=== PATIENT | female | born 2000 | race Caucasian/White ===

== ENCOUNTER 2022-06-25 05:09 | Inpatient (IN) ==
[2022-06-25] MEDS ORDERED: OXYTOCIN/LR 20 UNIT/1,000 ML BAG IV ONE ×2 (05:18→12:41)
[2022-06-25] MEDS ORDERED: ACETAMINOPHEN 325 MG TABLET PO PRN ×2 (05:18→12:41)
[2022-06-25] MEDS ORDERED: BUTORPHANOL 2 MG/ML VIAL IV PRN (05:18)
[2022-06-25] MEDS ORDERED: ONDANSETRON 4 MG/2 ML VIAL IV PRN ×2 (05:18→12:41)
[2022-06-25] MEDS ORDERED: LACTATED RINGERS 500 ML IV PRN (05:18)
[2022-06-25] MEDS ORDERED: BUTORPHANOL 1 MG/ML VIAL IV PRN (05:18)
[2022-06-25] MEDS ORDERED: LACTATED RINGERS 250 ML IV ONE (05:18)
[2022-06-25] MEDS ORDERED: CARBOPROST TROMETHAMINE 250 MCG/ML AMP IM PRN (05:18)
[2022-06-25] MEDS ORDERED: METHYLERGONOVINE 0.2 MG/1 ML AMP IM PRN (05:18)
[2022-06-25] MEDS ORDERED: miSOPROStoL 200 MCG TABLET RECTAL PRN (05:18)
[2022-06-25] MEDS ORDERED: TRANEXAMIC ACID 1,000 MG in SODIUM CHLORIDE 0.9% 100 ML IV PRN (05:18)
[2022-06-25] MEDS ORDERED: LACTATED RINGERS 1,000 ML IV SCH (05:30)
[2022-06-25] MEDS ORDERED: OXYTOCIN/LR 20 UNIT/1,000 ML BAG IV SCH (06:00)
[2022-06-25 06:09] LABS: Basophils % 0.5 % (0.0-0.8); Eosinophils # 0.1 10*3/uL (0.0-0.87); Eosinophils % 0.6 % (0.00-10.9); Hemoglobin 9.4 GM/DL (12.0-16.0); Immature Granulocytes % 1.7 %; Immature Granulocytes Absolute 0.15 #; Lymphocytes # 2.3 10*3/uL (1.4-4.0); Lymphocytes % 26.8 % (21.3-54.2); Mean Corpuscular HGB Conc 31.3 GM/DL (32-36); Mean Corpuscular Volume 84.5 FL (87-102); Mean Platelet Volume 10.4 FL (9.6-12.0); Monocytes % 10.9 % (1.7-12.7); NRBC # 0.02 10*3/uL; Neutrophils % 59.5 % (38.7-73.9); Platelet Count 280 T/CUMM (130-400); Red Blood Count 3.55 MC/CUMM (3.8-5.5); Red Cell Distribution Width 14.5 % (9.3-17.3); White Blood Count 8.7 T/CUMM (4-12)
[2022-06-25 06:37] LABS: Alanine Aminotransferase 11 U/L (13-56); Albumin 2.5 G/DL (3.4-5.0); Alkaline Phosphatase 169 U/L (45-117); Aspartate Amino Transferase 12 U/L (0-37); Bilirubin,Total < 0.39 MG/DL (0.20-1.00); Blood Urea Nitrogen 9 MG/DL (7-18); Calcium 8.8 MG/DL (8.5-10.1); Carbon Dioxide 20 MMOL/L (21-32); Chloride 110 MMOL/L (98-107); Glucose 81 MG/DL (74-106); Osmolality,Calculated 270.8 MOS/KG (273-304); Sodium 137 MMOL/L (136-145); Total Protein 6.4 G/DL (6.4-8.2)
[2022-06-25] MEDS ORDERED: LACTATED RINGERS 1,000 ML IV ONE (07:13)
[2022-06-25] MEDS ORDERED: FAMOTIDINE 20 MG/2 ML VIAL IV ONE (07:13)
[2022-06-25] MEDS ORDERED: diphenhydrAMINE 50 MG/1 ML VIAL IV PRN ×2 (07:13)
[2022-06-25] MEDS ORDERED: hydrOXYzine HCL 25 MG/1 ML VIAL IM PRN (07:13)
[2022-06-25] MEDS ORDERED: PROMETHAZINE 25 MG/1 ML VIAL IM ONE (07:13)
[2022-06-25] MEDS ORDERED: CITRIC ACID/SODIUM CITRATE 30 ML UDCUP PO ONE (07:13)
[2022-06-25] MEDS ORDERED: NALOXONE 0.4 MG/ML VIAL IV PRN (07:13)
[2022-06-25] MEDS ORDERED: fentaNYL 2 MCG/ROPIV 0.2% EPID 100 ML EPIDURAL SCH (07:30)
[2022-06-25] MEDS: ePHEDrine 50 MG/ML VIAL IV PRN ×3 (09:17→10:49)
[2022-06-25 10:37] LABS: Bilirubin,Urine Negative (Negative); Blood, Urine Negative (Negative); Glucose,Urine (UA) Negative (Negative); Ketones,Urine 5 mg/dL (Negative); Mucus,Urine Many /LPF (Occasional); Nitrite,Urine Negative (Negative); Protein,Urine 100 mg/dL (Negative); Urine Appearance Slightly Hazy (Clear); Urine Color Yellow (Yellow); Urine Specific Gravity 1.029 (1.001-1.035); Urine Urobilinogen < 2.0 eU/dL (<2.0)
[2022-06-25] MEDS ORDERED: TRANEXAMIC ACID 1,000 MG/10 ML VIAL ONE (11:50)
[2022-06-25] MEDS ORDERED: SODIUM CHLORIDE 0.9% 0 ML IV ONE (11:50)
[2022-06-25] MEDS ORDERED: miSOPROStoL 200 MCG TABLET ONE (11:50)
[2022-06-25] MEDS ORDERED: CARBOPROST TROMETHAMINE 250 MCG/ML AMP IM ONE (11:51)
[2022-06-25] MEDS ORDERED: METHYLERGONOVINE 0.2 MG/1 ML AMP ONE (11:51)
[2022-06-25] MEDS ORDERED: RHO(D) IMMUNE GLOBULIN 300 MCG SYRINGE IM ONE (12:41)
[2022-06-25] MEDS ORDERED: DIPH/TET/ACEL PERT BOOSTER VACCINE 0.5 ML VIAL IM ONE (12:41)
[2022-06-25] MEDS ORDERED: BISACODYL 10 MG SUPP RECTAL PRN (12:41)
[2022-06-25] MEDS ORDERED: LANOLIN 50% CREAM 0.3 OZ TUBE TOP PRN (12:41)
[2022-06-25] MEDS ORDERED: HYDROCORTISONE 2.5% RECTAL CREAM 30 GM TUBE TOP PRN (12:41)
[2022-06-25] MEDS ORDERED: WITCH HAZEL PADS 100/JAR TOP PRN (12:41)
[2022-06-25] MEDS ORDERED: BENZOCAINE 20%/MENTHOL 0.5% SPRAY 56 GM CAN TOP PRN (12:41)
[2022-06-25] MEDS ORDERED: MEASLES/MUMPS/RUBELLA VACCINE 0.5 ML VIAL SUBCUT ONE (12:41)
[2022-06-25] MEDS ORDERED: oxyCODONE/ACETAMINOPHEN 5-325 MG TABLET PO PRN ×2 (12:41)
[2022-06-25 12:46] LABS: Cord Arterial Blood HCO3 16.6 MMOL/L
[2022-06-25 12:49] LABS: Cord Venous Blood HCO3 17.5 MMOL/L; Cord Venous Blood PCO2 46.4 MMHG; Cord Venous Blood PO2 24.8
[2022-06-25] MEDS: IBUPROFEN 800 MG TABLET PO PRN (16:31)
[2022-06-25] MEDS: DOCUSATE SODIUM 100 MG CAPSULE PO SCH (21:17)
[2022-06-26] MEDS: IBUPROFEN 800 MG TABLET PO PRN ×2 (04:05→13:50)
[2022-06-26 05:46] LABS: Basophils % 0.4 % (0.0-0.8); Eosinophils % 0.4 % (0.00-10.9); Hemoglobin 8.5 GM/DL (12.0-16.0); Immature Granulocytes % 1.3 %; Immature Granulocytes Absolute 0.12 #; Lymphocytes # 2.4 10*3/uL (1.4-4.0); Lymphocytes % 25.5 % (21.3-54.2); Mean Corpuscular HGB Conc 30.4 GM/DL (32-36); Mean Corpuscular Volume 85.4 FL (87-102); Mean Platelet Volume 10.4 FL (9.6-12.0); NRBC # 0.05 10*3/uL; Neutrophils % 62.4 % (38.7-73.9); Platelet Count 231 T/CUMM (130-400); Red Blood Count 3.28 MC/CUMM (3.8-5.5); Red Cell Distribution Width 14.6 % (9.3-17.3); White Blood Count 9.6 T/CUMM (4-12)
[2022-06-26] MEDS: DOCUSATE SODIUM 100 MG CAPSULE PO SCH ×2 (08:47→20:26)
[2022-06-26] MEDS ORDERED: INFLUENZA VIRUS VACCINE 0.5 ML SYRINGE IM ONE (09:00)
[2022-06-27 07:58] VITALS: BP 139/87
[2022-06-27] MEDS: DOCUSATE SODIUM 100 MG CAPSULE PO SCH (09:08)
== END 2022-06-27 12:00 | disposition home or self-care (01) | DRG 807 ==
LOC: N.LD 05:09 → N.OB 15:35
PROVIDERS: ADMIT Specialist; ATTEND Specialist